=== PATIENT | male | born 1990 | race African-American/Black ===

== ENCOUNTER 2018-06-10 00:21 | Emergency (ER) | payer SELFPAY ==
[2018-06-10] MEDS ORDERED: DIPH/PERTUSS(ACELL)/TETANUS VAC/PF 0.5 ML SYR (>=10YO) IM ONE (01:01)
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
--- NOTE | 2018-06-10 01:26 | RADIOLOGY REPORT (SQ) ---
CLINICAL HISTORY: hand injury COMPARISON: None. TECHNIQUE: XR HAND 3 OR MORE VIEWS 06/10/2018 1:01 AM TELEPHONE SURVEYOR FINDINGS: There is no fracture. Joint spaces are preserved. There is a small laceration within the interspace of the first and second metacarpals. IMPRESSION: No acute osseous findings.
[2018-06-10] MEDS ORDERED: LIDOCAINE 1% INJ-PF (10 MG/ML) 30 ML SDV INJ ONE (01:40)
[2018-06-10] MEDS ORDERED: IBUPROFEN 600 MG TABLET PO ONE (02:39)
[2018-06-10] MEDS ORDERED: ACETAMINOPHEN 325 MG TABLET PO ONE (02:40)
[2018-06-10 03:24] VITALS: BP 120/79
== END 2018-06-10 03:24 | disposition home or self-care (01) ==
LOC: ER 00:21
DX: S61.011A Laceration without foreign body of right thumb without damage to nail, initial encounter (principal); X99.0XXA Assault by sharp glass, initial encounter; Z23 Encounter for immunization
CPT/HCPCS: 99283; 90471; 73130; 90715; 12001; J3490